=== PATIENT | male | born 1995 | race Caucasian/White ===

== ENCOUNTER 2016-07-15 21:51 | Day surgery (SDC) | payer OTHER ==
[~2016-07-15] VITALS: Ht 170.2 cm; Wt 98.4 kg
[2016-07-15 22:17] LABS: ADD MIUA? NO; BILIRUBIN NEGATIVE; BLOOD NEGATIVE; COLOR COLORLESS ((YELLOW)); GLUCOSE (STRIP) NEGATIVE; KETONES NEGATIVE; LEUKOCYTES NEGATIVE; NITRITE NEGATIVE; PROTEIN (STRIP) NEGATIVE; SPECIFIC GRAVITY 1.004 (1.000-1.030); UCUL ADDED? NO; UROBILINOGEN 0.2 MG/DL (0.2-1.0)
[2016-07-15 22:25] LABS: HEMATOCRIT 42.5 % (38.0-50.0); MCH 30.9 PG (29.0-34.0); MCHC 35.5 G/DL (30.0-36.0); MCV 86.9 FL (86-99); MEAN PLAT.VOLUME 10.1 uM^3 (9.0-12.4); PLATELET COUNT 214 K/uL (156-360); RBC DIS.WIDTH-CV 11.9 % (11.8-14.6); RBC DIS.WIDTH-SD 37.7 % (39-53); RED BLOOD COUNT 4.89 M/uL (4.00-5.50); WHITE BLOOD COUNT 15.7 K/uL (4.1-10.2)
[2016-07-15 22:33] LABS: CHLORIDE 106 mEq/L (99-109); POTASSIUM 3.6 mEq/L (3.7-5.4); SODIUM 140 mEq/L (136-147)
[2016-07-15 22:35] LABS: GLUCOSE 101 mg/dL (70-99)
[2016-07-15 22:37] LABS: ANION GAP 10 MEQ/L (2-14); TOTAL BILIRUBIN 3.3 mg/dL (0.0-1.0)
[2016-07-15 22:39] LABS: ALKALINE PHOSPHATASE 49 IU/L (3-129); GFR ESTIMATE (CALCULATED) > 59 mL/min/
[2016-07-15 22:40] LABS: UREA NITROGEN (BUN) 12 mg/dL (9-23)
[2016-07-15 23:16] LABS: LIPASE 145 U/L (1.0-51.0)
[2016-07-16] MEDS ORDERED: ESCITALOPRAM OX10 MG PO (01:03)
[2016-07-16 06:45] LABS: POINT-OF-CARE METER ID UU13113702
[2016-07-16 14:57] VITALS: BP 116/65
[2016-07-16 19:31] VITALS: BP 118/62
[2016-07-16 23:16] VITALS: BP 141/63
[2016-07-17 03:28] VITALS: BP 109/53
[2016-07-17 08:00] VITALS: BP 110/57
[2016-07-17 08:07] LABS: HEMATOCRIT 36.2 % (38.0-50.0); MCH 31.2 PG (29.0-34.0); MCHC 35.1 G/DL (30.0-36.0); MCV 88.9 FL (86-99); MEAN PLAT.VOLUME 11.1 uM^3 (9.0-12.4); PLATELET COUNT 178 K/uL (156-360); RED BLOOD COUNT 4.07 M/uL (4.00-5.50)
[2016-07-17 08:14] LABS: WHITE BLOOD COUNT 9.8 K/uL (4.1-10.2)
[2016-07-17 08:15] LABS: CHLORIDE 107 mEq/L (99-109); POTASSIUM 3.8 mEq/L (3.7-5.4); SODIUM 142 mEq/L (136-147)
[2016-07-17 08:17] LABS: GLUCOSE 86 mg/dL (70-99)
[2016-07-17 08:18] LABS: ANION GAP 9 MEQ/L (2-14)
[2016-07-17 08:21] LABS: GFR ESTIMATE (CALCULATED) > 59 mL/min/
[2016-07-17 08:22] LABS: UREA NITROGEN (BUN) 10 mg/dL (9-23)
[2016-07-17] MEDS ORDERED: HYDROCODON-ACE1 EAC7 PO (08:41)
== END 2016-07-17 09:38 | disposition home or self-care (01) ==
LOC: RME 21:51 → EME 21:51 → RME 07-16 06:36 → SDC 07-16 06:36 → 2SOUTH 07-16 08:17 → 2EAST 07-16 08:17 → 2SOUTH 07-16 08:17 → 2EAST 07-16 14:44
PROVIDERS: Thoracic Surgery (Cardiothoracic Vascular Surgery)
PROC: 0DBJ0ZZ Excision of Appendix, Open Approach (ICD-10-PCS; principal; 2016-07-16)
DX: K35.80 Unspecified acute appendicitis (principal)
CPT/HCPCS: 74177; 80048; 80053; 81003; 82948; 83690; 85027; 88304; 99281; 99285; G0378; J0131; J1100; J1170; J1335; J1885; J2250; J2270; J2405; J2710; J3010; J7120